=== PATIENT | female | born 1960 | race Caucasian/White ===

== ENCOUNTER 2020-05-27 02:15 | Outpatient (CLI) | payer OTHER, SELFPAY ==
[2020-05-27 18:25] LABS: SARS-CoV-2 RNA PCR Negative
== END 2020-05-27 02:16 | disposition home or self-care (01) ==
LOC: ANHCOVIDDT 02:15
PROVIDERS: PCP Internal Medicine; Visit Provider Internal Medicine Gastroenterology
DX: Z01.812 Encounter for preprocedural laboratory examination (principal); Z20.828 Contact with and (suspected) exposure to other viral communicable diseases
CPT/HCPCS: 87635; C9803; U0003

== ENCOUNTER 2020-05-30 03:20 | Day surgery (SDC) | payer OTHER, SELFPAY ==
[2020-05-24 10:31] VITALS: BMI 28.3
[2020-05-30 07:04] VITALS: BP 110/67; PULSE 82; RESP 20; TEMP 36.3; O2SAT 97; BMI 28.9
[2020-05-30] MEDS: LACTATED RINGERS 1,000 ML 150 ML IV CONT (07:17)
--- NOTE | 2020-05-30 07:36 | WPDANESEPPF ---
Anes - Initial Pre Proc Eval Procedure: Operation Date: 05/30/20 08:00 Proposed Procedures p Screening Colonoscopy - Jerry Torres MD Date/Time: 05/30/20 07:36 Surgeon: Jerry Torres MD Pre Op Diagnosis: Family HX of Colon CA Patient Data Age: 59 Gender: F Height: 5 ft 4 in Weight: 76.4 kg Last Vital Signs Temp 97.3 F L 05/30/20 07:04 Pulse 82 05/30/20 07:04 Resp 20 05/30/20 07:04 BP 110/67 05/30/20 07:04 Pulse Ox 97 05/30/20 07:04 Allergies Allergy/AdvReac Type Severity Reaction Status Date / Time cefuroxime Allergy Unknown Diarrhea Verified 05/30/20 07:00 Home Medications Medication Instructions Recorded Confirmed Type albuterol sulfate 90 mcg/actuation 2 puff INHALATION Q4-6H PRN #18 gm 10/28/19 05/24/20 Rx aerosol inhaler levothyroxine 150 mcg tablet 150 mcg PO DAILY #90 tablet 12/21/19 05/24/20 Rx B complex-C 500 mg-folic 400 1 tablet PO DAILY tablet 04/12/20 05/24/20 History mcg-zinc 24 mg-copper 3 mg-vit E tablet cholecalciferol (vitamin D3) 25 2,000 unit PO DAILY cap 04/12/20 05/24/20 History mcg (1,000 unit) capsule Clear Lungs 2 cap PO DAILY 05/24/20 05/24/20 History Patient hx anesthesia problems: none Family hx anesthesia problems: none PMFSH Past Medical History Medical History (Updated 04/12/20 @ 07:23 by Cydney Rosa CMA) Allergies Broken foot 1995 Chicken pox H/O measles Hammer toe 1992, 1997 Hypercalcemia Hypothyroidism IBS (irritable bowel syndrome) Insomnia Migraine Thrombocytopenia Vitamin D deficiency Surgical History Surgical History (Updated 04/12/20 @ 07:23 by Cydney Rosa CMA) History of bunionectomy Right 07/2018 Family History Family History (Updated 04/11/20 @ 16:30 by Cydney Rosa CMA) Father Carcinoma of colon Family history of malignant neoplasm Hypertension Mother Family history of coronary artery disease Sibling Brain tumor Family history of coronary artery disease Hyperlipidemia Hypothyroidism Other Diabetes mellitus Social History Social History (Updated 04/12/20 @ 11:14 by Cydney Rosa [facility]) Smoking packs per day: 1 Smoking cigarettes per day: 20.0 Years smoked: 40 Smoking pack-years: 40.00 Smoking status: Current every day smoker Tobacco type: cigarettes Alcohol intake: never Substance use: never Substance use type: does not use Living arrangements: with family Spiritual care concerns: No Anes - Eval Final PreProcedure Day of Procedure 05/30/20 07:36 Patient weight: normal Heart: regular rate and rhythm Lungs: clear to auscultation Airway: Mallampati scale class II Neurological: alert and oriented Last oral intake: >/= 8 hours ASA classification: III Emergent: no Anesthetic plan: proceed Anesthesia type and monitoring: general GIVS and standard monitoring Informed Consent: The patient's anesthetic plan and its attendant risks and benefits were discussed with the patient/family/POA. Questions were solicited and answers provided to the satisfaction of the patient/family/POA.
--- NOTE | 2020-05-30 07:38 | PM.HPGS ---
History of Present Illness History of Present Illness Consent: Risks, benefits, and alternatives have been discussed and questions answered. Patient agrees to proceed with procedure. Chief complaint: Family HX of Colon CA Narrative: Olinda Lopez is a 59 year old W female referred for screening colonoscopy secondary to family history of colon cancer in her father diagnosed around age 60. Patient is asymptomatic. Her last colonoscopy was 5 years ago no polyps were visualized at that time. [facility] Past Medical History Medical History (Updated 05/30/20 @ 07:40 by Jerry Torres MD) Allergies Broken foot 1995 Chicken pox H/O measles Hammer toe 1992, 1997 History of Clostridium difficile colitis Hypercalcemia Hypothyroidism IBS (irritable bowel syndrome) Insomnia Migraine Thrombocytopenia Vitamin D deficiency Surgical History Surgical History (Updated 05/30/20 @ 07:39 by Jerry Torres MD) H/O splenectomy History of bunionectomy Right 07/2018 Family History Family History (Updated 04/11/20 @ 16:30 by Cydney Rosa BUSINESS DEVELOPMENT INTERN) Father Carcinoma of colon Family history of malignant neoplasm Hypertension Mother Family history of coronary artery disease Sibling Brain tumor Family history of coronary artery disease Hyperlipidemia Hypothyroidism Other Diabetes mellitus Social History Social History (Updated 04/12/20 @ 11:14 by Cydney Rosa CMA) Smoking packs per day: 1 Smoking cigarettes per day: 20.0 Years smoked: 40 Smoking pack-years: 40.00 Smoking status: Current every day smoker Tobacco type: cigarettes Alcohol intake: never Substance use: never Substance use type: does not use Living arrangements: with family Spiritual care concerns: No Meds Home Medications and Allergies Home Medications Medication Instructions Recorded Confirmed Type albuterol sulfate 90 mcg/actuation 2 puff INHALATION Q4-6H PRN #18 gm 10/28/19 05/24/20 Rx aerosol inhaler levothyroxine 150 mcg tablet 150 mcg PO DAILY #90 tablet 12/21/19 05/24/20 Rx B complex-C 500 mg-folic 400 1 tablet PO DAILY tablet 04/12/20 05/24/20 History mcg-zinc 24 mg-copper 3 mg-vit E tablet cholecalciferol (vitamin D3) 25 2,000 unit PO DAILY cap 04/12/20 05/24/20 History mcg (1,000 unit) capsule Clear Lungs 2 cap PO DAILY 05/24/20 05/24/20 History Allergies Allergy/AdvReac Type Severity Reaction Status Date / Time cefuroxime Allergy Unknown Diarrhea Verified 05/30/20 07:00 Vital Signs Vital Signs - 24 hr 05/30/20 07:04 Temperature 36.3 C L Pulse Rate 82 Respiratory Rate 20 Blood Pressure 110/67 Pulse Oximetry 97 Exam Const: Orientation/consciousness: patient oriented x3 Resp: Auscultation: clear to auscultation bilaterally Cardio: Rate: regular rate Rhythm: regular rhythm Heart sounds: no murmurs GI: GI Palp: Yes Soft to palpation, No Tenderness to palpation present (GI), Yes No hepatosplenomegaly present and No Palpable mass present Auscultation: normal bowel sounds Neuro: General: patient oriented x3 and no focal motor deficits Extrem: General: no pedal edema Assessment and Plan Additional Plan screening colonoscopy secondary family history of colon cancer
[2020-05-30 08:13] VITALS: BP 102/61; PULSE 68; RESP 20; O2SAT 98
[2020-05-30 08:23] VITALS: BP 104/65; PULSE 67; RESP 20; O2SAT 98
[2020-05-30 08:33] VITALS: BP 111/74; PULSE 63; RESP 20; O2SAT 98
--- NOTE | 2020-05-30 09:00 | SUR.PHASEII ---
0823 pt states nausea is improving. 0835 pt states nausea is better,only mild, pt gotten up to chair. 0840 tolerating pepsi, mild nausea, wants to get dressed. 0850 pt states nausea is minimal now and wants to go home.
== END 2020-05-30 08:55 | disposition home or self-care (01) ==
PROVIDERS: PCP Internal Medicine; Visit Provider Internal Medicine Gastroenterology
PROC: 0DJD8ZZ Inspection of Lower Intestinal Tract, Via Natural or Artificial Opening Endoscopic (ICD-10-PCS; CPT 45378; principal; 2020-05-30 08:00)
DX: Z12.11 Encounter for screening for malignant neoplasm of colon (principal); D12.4 Benign neoplasm of descending colon; K57.30 Diverticulosis of large intestine without perforation or abscess without bleeding; E03.9 Hypothyroidism, unspecified; E55.9 Vitamin D deficiency, unspecified; K58.9 Irritable bowel syndrome, unspecified; F17.210 Nicotine dependence, cigarettes, uncomplicated
CPT/HCPCS: 45380; 88305; J2704; J7120

== ENCOUNTER 2021-07-17 07:57 | Outpatient (CLI) | payer OTHER, SELFPAY ==
--- NOTE | ~2021-07-17 | CT_ITS ---
EXAMINATION: CT lung screening DATE: 07/17/2021 08:20 INDICATION: F17.200 - Nicotine dependence, unspecified, uncomplicated TECHNIQUE: Computed tomography (CT) of the chest was performed without intravenous contrast. Addition al 3D reconstructions utilizing coronal maximum intensity projection (MIP) were performed. Automated exposure control and iterative reconstruction technique were employed. The dose-length product was 84 .32 mGy-cm. COMPARISON: None FINDINGS: 2 mm left apical nodule. Calcified right middle lobe nodule and calcified right hilar and mediastinal lymph nodes consistent with old granulomatous disease. No pneumonia, pulmonary edema, pleural effusi on or pneumothorax. Heart size is normal. No pericardial effusion. Thoracic aorta is normal in calibe r. No pathologically enlarged thoracic lymphadenopathy. A couple tiny hepatic calcifications consiste nt with old granulomatous disease. Small spleen. Mild thoracic spondylosis. IMPRESSION: 1. . Lung-RADS category 2: Benign appearance or behavior. Continue annual screening with noncontrast low-dose chest CT in 12 months. Reviewed, dictated and finalized at location B. OIL TRUCK DRIVER IMPRESSION: 1. . Lung-RADS category 2: Benign appearance or behavior. Continue annual scree bladimir with noncontrast low-dose chest CT in 12 months.
== END 2021-07-17 07:58 | disposition home or self-care (01) ==
LOC: ANHIMG 08:00
PROVIDERS: PCP Internal Medicine; Visit Provider Clinical Nurse Specialist
DX: F17.200 Nicotine dependence, unspecified, uncomplicated (principal)
CPT/HCPCS: 71271

== ENCOUNTER 2021-10-10 10:34 | Outpatient (CLI) | payer OTHER, SELFPAY ==
--- NOTE | ~2021-10-10 | XR_ITS ---
XR shoulder LT min 2V DATE: 10/10/2021 10:57 INDICATION: Left shoulder pain. No injury. TECHNIQUE: 4 views COMPARISON: None FINDINGS: Left cervical rib. No fracture or dislocation, periosteal reaction or bone destruction or abnormal soft tissue calcifica tion of the left shoulder. Normal alignment at the acromioclavicular and glenohumeral joints. IMPRESSION: Left cervical rib Reviewed, dictated and finalized at location A. T [employer] EDUCATION TEACHER IMPRESSION: Left cervical rib
== END 2021-10-10 10:35 | disposition home or self-care (01) ==
PROVIDERS: PCP Internal Medicine; Visit Provider Clinical Nurse Specialist
DX: M25.512 Pain in left shoulder (principal)
CPT/HCPCS: 73030

== ENCOUNTER 2023-05-27 08:59 | Outpatient (CLI) | payer OTHER, SELFPAY ==
[2023-05-27 20:09] LABS: Alanine Aminotransferase 19 U/L (6-35); Albumin Level 4.6 g/dL (3.5-5.1); Alkaline Phosphatase 119 U/L (38-126); Anion Gap 7 mmol/L (8-16); Aspartate Amino Transferase 48 U/L (14-36); Bilirubin,Total 0.6 mg/dL (0.2-1.3); Blood Urea Nitrogen 13 mg/dL (7-17); Calcium 9.7 mg/dL (8.4-10.2); Carbon Dioxide 30 mmol/L (22-30); Chloride 102 mmol/L (98-107); Cholesterol 190 mg/dL (0-200); Estimated Glomerular Filt Rate > 60; Glucose 88 mg/dL (65-110); HDL Direct 58 mg/dL; Potassium 4.9 mmol/L (3.4-5.0); Sodium 139 mmol/L (137-145); Triglycerides 124 mg/dL (<150)
[2023-05-27 20:20] LABS: LDL Cholesterol Direct 97 mg/dL
== END 2023-05-27 09:00 | disposition home or self-care (01) ==
LOC: ANHGOSHLAB 09:01
PROVIDERS: PCP Internal Medicine; Visit Provider Nurse Practitioner
DX: Z13.220 Encounter for screening for lipoid disorders (principal); Z13.29 Encounter for screening for other suspected endocrine disorder
CPT/HCPCS: 36415; 80053; 80061